=== PATIENT | female | born 1970 | race African-American/Black ===

== ENCOUNTER 2018-11-01 14:26 | Inpatient (IN) | payer OTHER ==
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
[2018-11-01] MEDS ORDERED: hydrOXYzine HCL 25 MG TABLET (FP) PO PRN (18:43)
[2018-11-01] MEDS ORDERED: NICOTINE POLACRILEX 2 MG GUM BUC PRN (18:44)
[2018-11-01] MEDS ORDERED: MAG HYDROX/AL HYDROX/SIMETH 30 ML UNIT-DOSE CUP PO PRN (18:44)
[2018-11-01] MEDS ORDERED: MAGNESIUM CITRATE 300 ML BOTTLE PO PRN (18:44)
[2018-11-01] MEDS ORDERED: BISMUTH SUBSALICYLATE 524 MG/30 ML UD PO PRN (18:44)
[2018-11-01] MEDS ORDERED: chlordiazePOXIDE HCL 25 MG CAPSULE PO ONE (18:44)
[2018-11-01] MEDS ORDERED: MENTHOL/PHENOL 1 EACH UD MM PRN (18:44)
[2018-11-01] MEDS ORDERED: chlordiazePOXIDE HCL 25 MG CAPSULE PO PRN (18:44)
[2018-11-01] MEDS ORDERED: ACETAMINOPHEN 325 MG TABLET (FP) PO PRN (18:44)
[2018-11-01] MEDS ORDERED: MAGNESIUM HYDROX 2400MG/30ML ORAL SUSPENSION 30 ML CUP PO PRN (18:44)
[2018-11-01 18:52] VITALS: BMI 35.5
[2018-11-01] MEDS ORDERED: cloNIDine HCL 0.1 MG TABLET PO ONE (18:56)
[2018-11-01] MEDS: chlordiazePOXIDE HCL 25 MG CAPSULE PO SCH (22:06)
[2018-11-01] MEDS: GABAPENTIN 300 MG CAPSULE (FP) PO SCH (22:06)
[2018-11-01] MEDS: MELATONIN 5 MG TABLETS PO PRN (22:06)
[2018-11-01] MEDS: THIAMINE HCL 100 MG TABLET (FP) PO SCH (22:06)
[2018-11-01] MEDS: IBUPROFEN 400 MG TABLET (FP) PO PRN (22:06)
[2018-11-02 01:41] LABS: URINE APPEARANCE SLCLOUDY; URINE BILIRUBIN NEGATIVE (<2.0 mg/dL); URINE COLOR AMBER; URINE GLUCOSE (UA) NEGATIVE (NEGATIVE); URINE KETONE NEGATIVE (NEGATIVE); URINE LEUK ESTERASE NEGATIVE (NEGATIVE); URINE NITRITE NEGATIVE (NEGATIVE); URINE PROTEIN 2+ (NEGATIVE)
[2018-11-02 01:49] LABS: EPI CELLS RARE /HPF (FEW); URINE BACTERIA RARE /hpf (NONE SEEN); URINE HYALINE CAST 1 /lpf; URINE MUCUS MANY
[2018-11-02] MEDS: chlordiazePOXIDE HCL 25 MG CAPSULE PO SCH ×4 (06:08→22:14)
[2018-11-02] MEDS: GABAPENTIN 300 MG CAPSULE (FP) PO SCH ×3 (06:08→22:14)
--- NOTE | 2018-11-02 08:52 | CONSULT ---
[facility] Psychiatric Consult - Data Date of interview: 11/02/18 Admission source: [facility] Identifying data: Lead Atg Developer approached patient for psychiatric consultation. Patient refused. Patient stated, " I don't want to see you it's ok. I don't want to take my medications."As per home medications, patient takes gabapentin 600mg TID + Busar 30mg BID.
[2018-11-02] MEDS: PRENATAL VITAMINS W/ FOLIC ACID TABLET (FP) PO SCH (10:34)
[2018-11-02] MEDS: NICOTINE 14 MG/24 HOURS TOPICAL PATCH TD SCH (10:34)
--- NOTE | 2018-11-02 10:45 | EKG ---
Test Reason : Blood Pressure : / mmHG Vent. Rate : 082 BPM Atrial Rate : 082 BPM P-R Int : 166 ms QRS Dur : 088 ms QT Int : 394 ms P-R-T Axes : 067 078 054 degrees QTc Int : 460 ms NORMAL SINUS RHYTHM POSSIBLE LEFT ATRIAL ENLARGEMENT LEFT VENTRICULAR HYPERTROPHY ABNORMAL ECG NO PREVIOUS ECGS AVAILABLE Confirmed by Ralf Rodgers MD ([id number]) on 11/02/2018 10:44:56 AM Referred By: EARLINE ROMAN Confirmed By:Ralf Rodgers MD
[2018-11-02 11:26] LABS: HEMOGLOBIN 12.6 GM/dL (10.7-15.3); MCH 34.7 pg (25.7-33.7); MEAN CELL VOLUME 99.1 fl (80-96); MEAN PLT VOLUME 7.5 fl (7.5-11.1); PLATELET COUNT 358 K/MM3 (134-434); RBC 3.64 M/mm3 (3.60-5.2); RDW 13.5 % (11.6-15.6); WHITE BLOOD COUNT 4.7 K/mm3 (4.0-10.0)
--- NOTE | 2018-11-02 11:38 | PN ---
S CIWA - CIWA Score Nausea/Vomitin-No Nausea/No Vomiting Muscle Tremors: 3 Anxiety: 3 Agitation: 3 Paroxysmal Sweats: 3 Orientation: 0-Oriented Tacttile Disturbances: 0-None Auditory Disturbances: 0-None Visual Disturbances: 0-None Headache: 0-None Present CIWA-Ar Total Score: 12 S Progress Note (SOAP) Subjective: irritable sweats tired shakes body aches Objective: 11/02/18 11:37 Vital Signs Temperature 97.9 F 11/02/18 09:36 Pulse Rate 81 11/02/18 09:36 Respiratory Rate 18 11/02/18 09:36 Blood Pressure 110/76 11/02/18 09:36 O2 Sat by Pulse Oximetry (%) Laboratory Tests 11/01/18 11/02/18 23:15 07:30 WBC 4.7 RBC 3.64 Hgb 12.6 Hct 36.0 MCV 99.1 H MCH 34.7 H MCHC 35.0 RDW 13.5 Plt Count 358 MPV 7.5 Urine Color Chrystal Urine Appearance Slcloudy Urine pH 6.0 Ur Specific [place] 1.026 Urine Protein 2+ H Urine Glucose (UA) Negative Urine Ketones Negative Urine Blood Negative Urine Nitrite Negative Urine Bilirubin Negative Urine Urobilinogen 2.0 H Ur Leukocyte Esterase Negative Urine WBC (Auto) 6 Urine RBC (Auto) 5 Ur Epithelial Cells Rare Urine Bacteria Rare Hyaline Casts 1 Urine Mucus Many labs pending repeat u/a aaox3 ambulating no acute distress Assessment: 11/02/18 11:38 withdrawal sx Plan: continue detox increase fluids labs pending
[2018-11-02 11:45] LABS: ALBUMIN 3.1 g/dl (3.4-5.0); ALK PHOS 79 U/L (45-117); ANION GAP 7 MMOL/L (8-16); BILIRUBIN,TOTAL 0.3 mg/dL (0.2-1); BLOOD UREA NITROGEN 10 mg/dL (7-18); CALCIUM 8.8 mg/dL (8.5-10.1); CHLORIDE 99 mmol/L (98-107); CO2 32 mmol/L (21-32); GLUCOSE,RANDOM 108 mg/dL (74-106); SGOT/AST 34 U/L (15-37); SGPT/ALT 25 U/L (13-61); SODIUM 138 mmol/L (136-145); TOT PROT 7.8 g/dl (6.4-8.2)
[2018-11-02 12:10] LABS: POTASSIUM 2.8 mmol/L (3.5-5.1)
[2018-11-02] MEDS: POTASSIUM CHLORIDE ORAL LIQUID 20 MEQ/15 ML PO SCH ×3 (13:39→22:13)
[2018-11-02] MEDS: THIAMINE HCL 100 MG TABLET (FP) PO SCH (22:14)
[2018-11-02] MEDS: IBUPROFEN 400 MG TABLET (FP) PO PRN (22:15)
[2018-11-03] MEDS: POTASSIUM CHLORIDE ORAL LIQUID 20 MEQ/15 ML PO SCH (03:24)
[2018-11-03] MEDS ORDERED: POTASSIUM CHLORIDE TABS 20 MEQ TABLET.ER (FP) PO ONE (03:30)
[2018-11-03] MEDS: chlordiazePOXIDE HCL 25 MG CAPSULE PO SCH ×3 (05:34→18:18)
[2018-11-03] MEDS: GABAPENTIN 300 MG CAPSULE (FP) PO SCH ×3 (05:34→22:34)
[2018-11-03] MEDS: NICOTINE 14 MG/24 HOURS TOPICAL PATCH TD SCH (11:58)
[2018-11-03] MEDS: PRENATAL VITAMINS W/ FOLIC ACID TABLET (FP) PO SCH (11:58)
--- NOTE | 2018-11-03 14:10 | PN ---
[facility] CIWA - CIWA Score Nausea/Vomitin-No Nausea/No Vomiting Muscle Tremors: 3 Anxiety: 2 Agitation: 3 Paroxysmal Sweats: 2 Orientation: 0-Oriented Tacttile Disturbances: 0-None Auditory Disturbances: 0-None Visual Disturbances: 0-None Headache: 0-None Present CIWA-Ar Total Score: 10 S Progress Note (SOAP) Subjective: tired irritable sweats Objective: 11/03/18 14:09 Vital Signs Temperature 98.1 F 11/03/18 09:54 Pulse Rate 98 H 11/03/18 09:54 Respiratory Rate 16 11/03/18 09:54 Blood Pressure 111/76 11/03/18 09:54 O2 Sat by Pulse Oximetry (%) Laboratory Tests 11/01/18 11/02/18 11/02/18 23:15 07:30 07:30 WBC 4.7 RBC 3.64 Hgb 12.6 Hct 36.0 MCV 99.1 H MCH 34.7 H MCHC 35.0 RDW 13.5 Plt Count 358 MPV 7.5 Sodium 138 Potassium 2.8 L* Chloride 99 Carbon Dioxide 32 Anion Gap 7 L BUN 10 Creatinine 1.0 Creat Clearance w eGFR 59.69 Random Glucose 108 H Calcium 8.8 Total Bilirubin 0.3 AST 34 ALT 25 Alkaline Phosphatase 79 Total Protein 7.8 Albumin 3.1 L Urine Color Chrystal Urine Appearance Slcloudy Urine pH 6.0 Ur Specific [place] 1.026 Urine Protein 2+ H Urine Glucose (UA) Negative Urine Ketones Negative Urine Blood Negative Urine Nitrite Negative Urine Bilirubin Negative Urine Urobilinogen 2.0 H Ur Leukocyte Esterase Negative Urine WBC (Auto) 6 Urine RBC (Auto) 5 Ur Epithelial Cells Rare Urine Bacteria Rare Hyaline Casts 1 Urine Mucus Many RPR Titer 11/02/18 11/03/18 07:30 07:45 WBC RBC Hgb Hct MCV MCH MCHC RDW Plt Count MPV Sodium Potassium 3.4 L Chloride Carbon Dioxide Anion Gap BUN Creatinine Creat Clearance w eGFR Random Glucose Calcium Total Bilirubin AST ALT Alkaline Phosphatase Total Protein Albumin Urine Color Urine Appearance Urine pH Ur Specific [place] Urine Protein Urine Glucose (UA) Urine Ketones Urine Blood Urine Nitrite Urine Bilirubin Urine Urobilinogen Ur Leukocyte Esterase Urine WBC (Auto) Urine RBC (Auto) Ur Epithelial Cells Urine Bacteria Hyaline Casts Urine Mucus RPR Titer Nonreactive potassium improving; will continue with kdur 20meqx 2 days aaox3 ambulating no acute distress Assessment: 11/03/18 14:10 withdrawal sx Plan: continue detox increase fluids kdur ordered
[2018-11-03] MEDS: METHOCARBAMOL 500 MG TABLET PO PRN ×2 (14:36→22:34)
[2018-11-03] MEDS: ACETAMINOPHEN 325 MG TABLET (FP) PO PRN (18:18)
[2018-11-03] MEDS: chlordiazePOXIDE HCL 10 MG CAPSULE PO SCH (22:34)
[2018-11-03] MEDS: THIAMINE HCL 100 MG TABLET (FP) PO SCH (22:34)
[2018-11-03] MEDS ORDERED: chlordiazePOXIDE HCL 10 MG CAPSULE PO PRN (23:00)
[2018-11-04] MEDS: chlordiazePOXIDE HCL 10 MG CAPSULE PO SCH ×4 (06:49→22:06)
[2018-11-04] MEDS: IBUPROFEN 400 MG TABLET (FP) PO PRN ×2 (06:49→18:32)
[2018-11-04] MEDS: GABAPENTIN 300 MG CAPSULE (FP) PO SCH ×3 (06:50→22:06)
[2018-11-04] MEDS: POTASSIUM CHLORIDE TABS 20 MEQ TABLET.ER (FP) PO SCH (10:29)
[2018-11-04] MEDS: PRENATAL VITAMINS W/ FOLIC ACID TABLET (FP) PO SCH (10:29)
[2018-11-04] MEDS: NICOTINE 14 MG/24 HOURS TOPICAL PATCH TD SCH (10:29)
[2018-11-04] MEDS: METHOCARBAMOL 500 MG TABLET PO PRN ×2 (12:43→18:32)
[2018-11-04] MEDS ORDERED: ONDANSETRON *ODT* 4 MG TABLET SL PRN (13:28)
[2018-11-04] MEDS ORDERED: LIDOCAINE 5% TOPICAL PATCH TP SCH (13:30)
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
[2018-11-04] MEDS ORDERED: LIDOCAINE PATCH REMOVAL MC SCH (22:00)
[2018-11-04] MEDS: THIAMINE HCL 100 MG TABLET (FP) PO SCH (22:06)
[2018-11-04] MEDS: MELATONIN 5 MG TABLETS PO PRN (22:06)
[2018-11-05] MEDS: GABAPENTIN 300 MG CAPSULE (FP) PO SCH ×3 (05:23→22:20)
[2018-11-05] MEDS: PRENATAL VITAMINS W/ FOLIC ACID TABLET (FP) PO SCH (10:21)
[2018-11-05] MEDS: NICOTINE 14 MG/24 HOURS TOPICAL PATCH TD SCH (10:21)
[2018-11-05] MEDS: chlordiazePOXIDE HCL 10 MG CAPSULE PO SCH ×2 (10:21→22:20)
[2018-11-05] MEDS: POTASSIUM CHLORIDE TABS 20 MEQ TABLET.ER (FP) PO SCH (10:40)
[2018-11-05 11:37] LABS: URINE APPEARANCE CLEAR; URINE BILIRUBIN NEGATIVE (<2.0 mg/dL); URINE COLOR YELLOW; URINE GLUCOSE (UA) NEGATIVE (NEGATIVE); URINE KETONE NEGATIVE (NEGATIVE); URINE LEUK ESTERASE NEGATIVE (NEGATIVE); URINE NITRITE NEGATIVE (NEGATIVE); URINE PROTEIN NEGATIVE (NEGATIVE); URINE UROBILINOGEN 0.2 mg/dL (0.2-1.0)
[2018-11-05] MEDS ORDERED: AMMONIUM LACTATE 12% LOTION 225 GM BOTTLE TP PRN (14:06)
--- NOTE | 2018-11-05 15:24 | PN ---
S Progress Note (SOAP) Subjective: Pt states she has R leg pain- here after she relapsed with alcohol, going home tomorrow- completing alcohol detox protocol o: Vital Signs - 24 hr 11/04/18 11/04/18 11/05/18 17:10 22:10 00:30 Temperature 98.0 F 98.2 F Pulse Rate 94 H 91 H Respiratory 18 18 18 Rate Blood Pressure 120/76 134/85 11/05/18 11/05/18 11/05/18 03:30 06:00 09:19 Temperature 97.5 F L 98.8 F Pulse Rate 79 86 Respiratory 18 18 20 Rate Blood Pressure 133/94 118/82 11/05/18 13:52 Temperature 98.2 F Pulse Rate 91 H Respiratory 20 Rate Blood Pressure 138/79 Laboratory Tests 11/01/18 11/02/18 11/02/18 23:15 07:30 07:30 WBC 4.7 RBC 3.64 Hgb 12.6 Hct 36.0 MCV 99.1 H MCH 34.7 H MCHC 35.0 RDW 13.5 Plt Count 358 MPV 7.5 Sodium 138 Potassium 2.8 L* Chloride 99 Carbon Dioxide 32 Anion Gap 7 L BUN 10 Creatinine 1.0 Creat Clearance w eGFR 59.69 Random Glucose 108 H Calcium 8.8 Total Bilirubin 0.3 AST 34 ALT 25 Alkaline Phosphatase 79 Total Protein 7.8 Albumin 3.1 L Urine Color Chrystal Urine Appearance Slcloudy Urine pH 6.0 Ur Specific [place] 1.026 Urine Protein 2+ H Urine Glucose (UA) Negative Urine Ketones Negative Urine Blood Negative Urine Nitrite Negative Urine Bilirubin Negative Urine Urobilinogen 2.0 H Ur Leukocyte Esterase Negative Urine WBC (Auto) 6 Urine RBC (Auto) 5 Ur Epithelial Cells Rare Urine Bacteria Rare Hyaline Casts 1 Urine Mucus Many RPR Titer 11/02/18 11/03/18 11/04/18 07:30 07:45 07:30 WBC RBC Hgb Hct MCV MCH MCHC RDW Plt Count MPV Sodium Potassium 3.4 L 4.0 Chloride Carbon Dioxide Anion Gap BUN Creatinine Creat Clearance w eGFR Random Glucose Calcium Total Bilirubin AST ALT Alkaline Phosphatase Total Protein Albumin Urine Color Urine Appearance Urine pH Ur Specific [place] Urine Protein Urine Glucose (UA) Urine Ketones Urine Blood Urine Nitrite Urine Bilirubin Urine Urobilinogen Ur Leukocyte Esterase Urine WBC (Auto) Urine RBC (Auto) Ur Epithelial Cells Urine Bacteria Hyaline Casts Urine Mucus RPR Titer Nonreactive 11/05/18 07:00 WBC RBC Hgb Hct MCV MCH MCHC RDW Plt Count MPV Sodium Potassium Chloride Carbon Dioxide Anion Gap BUN Creatinine Creat Clearance w eGFR Random Glucose Calcium Total Bilirubin AST ALT Alkaline Phosphatase Total Protein Albumin Urine Color Yellow Urine Appearance Clear Urine pH 8.0 D Ur Specific [place] 1.011 Urine Protein Negative Urine Glucose (UA) Negative Urine Ketones Negative Urine Blood Negative Urine Nitrite Negative Urine Bilirubin Negative Urine Urobilinogen 0.2 Ur Leukocyte Esterase Negative Urine WBC (Auto) Urine RBC (Auto) Ur Epithelial Cells Urine Bacteria Hyaline Casts Urine Mucus RPR Titer low potassium pt states she has HIV a/p: continue alcohol detox protcol- pt doing well, has prn meds for leg pain will include HIv to problem list
[2018-11-05] MEDS: IBUPROFEN 400 MG TABLET (FP) PO PRN (17:02)
[2018-11-05] MEDS: THIAMINE HCL 100 MG TABLET (FP) PO SCH (22:20)
[2018-11-05] MEDS: MELATONIN 5 MG TABLETS PO PRN (22:20)
[2018-11-05] MEDS: ACETAMINOPHEN 325 MG TABLET (FP) PO PRN (22:21)
[2018-11-06] MEDS: GABAPENTIN 300 MG CAPSULE (FP) PO SCH (05:51)
[2018-11-06 09:35] VITALS: BP 142/105; PULSE 84; TEMP 97.2
[2018-11-06] MEDS: PRENATAL VITAMINS W/ FOLIC ACID TABLET (FP) PO SCH (10:37)
[2018-11-06] MEDS: NICOTINE 14 MG/24 HOURS TOPICAL PATCH TD SCH (10:37)
--- NOTE | 2018-11-06 15:26 | PN ---
S Progress Note (SOAP) Subjective: DEnies any new complaint Objective: 11/06/18 15:24 A & O x 3 Ambulating steadily on unit Vital Signs Temperature 97.2 F L 11/06/18 09:35 Pulse Rate 84 11/06/18 09:35 Respiratory Rate 18 11/06/18 09:35 Blood Pressure 142/105 H 11/06/18 09:35 O2 Sat by Pulse Oximetry (%) Elevated Bp, denies SEALS, chest pains, other neuro nor cardiac hx Assessment: 11/06/18 15:25 detox completed in stable condition Plan: for d/c
--- NOTE | 2018-11-06 15:30 | DS ---
[facility] Detox Discharge Summary Admission Date: 11/01/18 Discharge Date: 11/06/18 - History Additional Comments: Discharged home s/p completion of detox. Conditions stable Encouraged to f/u with PMD re- HIV status Vital Signs Temperature 97.2 F L 11/06/18 09:35 Pulse Rate 84 11/06/18 09:35 Respiratory Rate 18 11/06/18 09:35 Blood Pressure 142/105 H 11/06/18 09:35 O2 Sat by Pulse Oximetry (%) - Physical Exam Results Vital Signs: Vital Signs Temperature 97.2 F L 11/06/18 09:35 Pulse Rate 84 11/06/18 09:35 Respiratory Rate 18 11/06/18 09:35 Blood Pressure 142/105 H 11/06/18 09:35 O2 Sat by Pulse Oximetry (%) - Treatment Hospital Course: Detox Protocol Followed, Detoxed Safely, Responded well, Discharged Condition Good - Medication Discharge Medications: Ambulatory Orders Buspirone HCl [Buspar -] 30 mg PO BID 11/01/18 Gabapentin [Neurontin -] 600 mg PO Q8H 11/01/18 - AMA Did Patient Leave Against Medical Advice: No
== END 2018-11-06 12:27 | disposition home or self-care (01) | DRG 773 ==
LOC: YASAS 14:26 → Y6N 18:53
PROVIDERS: ADMIT Surgery; ATTEND Surgery
PROC: HZ2ZZZZ Detoxification Services for Substance Abuse Treatment (ICD-10-PCS; principal; 2018-11-01)
DX: F11.23 Opioid dependence with withdrawal (principal); F10.230 Alcohol dependence with withdrawal, uncomplicated; F14.20 Cocaine dependence, uncomplicated; F31.9 Bipolar disorder, unspecified; F43.10 Post-traumatic stress disorder, unspecified; G62.9 Polyneuropathy, unspecified; M17.0 Bilateral primary osteoarthritis of knee; S93.491A Sprain of other ligament of right ankle, initial encounter; X58.XXXA Exposure to other specified factors, initial encounter; Y93.89 Activity, other specified; Y92.89 Other specified places as the place of occurrence of the external cause; Y99.8 Other external cause status; Z88.2 Allergy status to sulfonamides
CPT/HCPCS: 36415; 80053; 81003; 81015; 84132; 85027; 86593; 93005; 93010; J0735